=== PATIENT | female | born 1975 | race Caucasian/White ===

== ENCOUNTER → 2016-08-28 | Outpatient (REF) | payer OTHER | LOC: M LAB REF 16:27 | PROVIDERS: ATTEND Physician Assistant | DX: N39.0 Urinary tract infection, site not specified (principal) ==

== ENCOUNTER 2017-07-12 14:40 | Emergency (ER) | payer OTHER ==
[2017-07-12] MEDS: NS 1,000 ML IV (18:30)
[2017-07-12] MEDS: diphenhydrAMINE INJ 50MG/ML VIAL (J1200) IV (18:30)
[2017-07-12] MEDS: KETOROLAC 30 MG/ML VIAL (J1885) IV (18:30)
[2017-07-12] MEDS: METOCLOPRAMIDE INJ 10MG/2ML VIAL (J2765) IV (18:30)
[2017-07-12 21:23] LABS: CARBOXYHEMOGLOBIN 6.7 % (0.0-1.5)
[2017-07-12] MEDS: FIORICET TAB PO (21:25)
[2017-07-12] MEDS: MORPHINE 4 MG/ML 1ML SYRINGE IV ×2 (21:45→22:30)
[2017-07-12 21:48] LABS: ERYTHROCYTE SEDIMENTATION RATE 6 mm/hr (0-20)
== END 2017-07-12 23:31 | disposition home or self-care (01) ==
LOC: M ED 14:40
DX: R51 Headache (principal); T58.91XA Toxic effect of carbon monoxide from unspecified source, accidental (unintentional), initial encounter; X58.XXXA Exposure to other specified factors, initial encounter; Y92.89 Other specified places as the place of occurrence of the external cause; R93.0 Abnormal findings on diagnostic imaging of skull and head, not elsewhere classified; Z86.19 Personal history of other infectious and parasitic diseases; Z97.5 Presence of (intrauterine) contraceptive device; Z79.899 Other long term (current) drug therapy; F17.210 Nicotine dependence, cigarettes, uncomplicated
CPT/HCPCS: J1200